=== PATIENT | male | born 1990 | race Caucasian/White ===

== ENCOUNTER 2017-06-15 05:50 | Emergency (ER) | payer SELFPAY | END 2017-06-15 07:25 | disposition home or self-care (01) | LOC: MED 05:50 | DX: B34.9 Viral infection, unspecified (principal); F17.200 Nicotine dependence, unspecified, uncomplicated | CPT/HCPCS: 99281 ==

== ENCOUNTER 2018-08-09 02:05 | Emergency (ER) | payer SELFPAY ==
[~2018-08-09] VITALS: Ht 177.8 cm; Wt 86.2 kg
[2018-08-09 02:11] VITALS: BP 118/71
--- NOTE | 2018-08-09 02:19 | NUR ---
PT AMBULATED TO BED 3 WITH VSS. Addendum: 08/09/18 at 0222 by SHY PT AMBULATED TO BED 2 WITH VSS.
--- NOTE | 2018-08-09 02:20 | NUR ---
C/O PRODUCTIVE COUGH X3 DAYS.. AFEBRILE. SMOKER. DENIES N/V/D; SKIN IS PINK/WARM/DRY; AAOX4 WITH EVEN AND STEADY GAIT; LUNGS CLEAR BL; HR EVEN AND REGULAR; PT DENIES ANY FEVER, CP, OR SOB AT THIS TIME; PATIENT STATES PAIN OF 0/10 AT THIS TIME; VSS; PATIENT POSITIONED FOR COMFORT; HOB ELEVATED; BEDRAILS UP X1; BED DOWN. ER MD MADE AWARE OF PT STATUS. PMH: DENIES RX: DENIES
--- NOTE | 2018-08-09 02:50 | NUR ---
Dr. Logan evaluating patient at bedside.
--- NOTE | 2018-08-09 03:21 | NUR ---
Patient discharged with v/s stable. Written and verbal after care instructions given and explained. Patient alert, oriented and verbalized understanding of instructions. Ambulatory with steady gait. All questions addressed prior to discharge. ID band removed. Patient advised to follow up with PMD. Rx of Acetaminophen, and Azithromycin given. Patient educated on indication of medication including possible reaction and side effects. Opportunity to ask questions provided and answered.
[2018-08-09 04:19] VITALS: BP 122/73
== END 2018-08-09 03:21 | disposition home or self-care (01) ==
LOC: MED 02:05
DX: J20.9 Acute bronchitis, unspecified (principal); F17.210 Nicotine dependence, cigarettes, uncomplicated; Z88.0 Allergy status to penicillin; Z88.8 Allergy status to other drugs, medicaments and biological substances
CPT/HCPCS: 99283

== ENCOUNTER 2019-01-20 01:52 | Emergency (ER) | payer MEDICAID ==
[~2019-01-20] VITALS: Ht 177.8 cm; Wt 86.2 kg
[2019-01-20 01:54] VITALS: BP 112/62
[2019-01-20 03:10] VITALS: BP 118/70
== END 2019-01-20 03:10 | disposition home or self-care (01) ==
LOC: MED 01:52
DX: R05 Cough (principal); R50.9 Fever, unspecified; J45.909 Unspecified asthma, uncomplicated; F41.9 Anxiety disorder, unspecified; F17.200 Nicotine dependence, unspecified, uncomplicated; Z88.0 Allergy status to penicillin; Z88.8 Allergy status to other drugs, medicaments and biological substances
CPT/HCPCS: 99283